=== PATIENT | female | born 1970 | race Hispanic/Latino ===

== ENCOUNTER 2017-08-06 09:55 | Emergency (ER) | payer MEDICAID ==
[2017-08-06 10:01] VITALS: BMI 24.2
[2017-08-06] MEDS ORDERED: DiphenhydrAMINE 50 mg/ml Inj IVP STA (10:07)
--- NOTE | 2017-08-06 10:11 | ED PDOC ---
Arrival/HPI - General Chief Complaint: Substance Abuse Time Seen by Provider: 08/06/17 10:04 Historian: Patient - History of Present Illness Narrative History of Present Illness (Text): 42yoF, with agitation, stated opioid withdrawal and took several percocet's and someone else's suboxone without clarification of quantity or dose but otherwise denies thoughts to harm self or others or hallucinations or any head injury/ trauma/sob/chest pain/abdomen pain/numbness/tingling/loss of limb function/pain with urination. patient became agitated and per nursing requires restraints and sedation for her safety. 08/06/17 10:08 08/06/17 10:11 Time/Duration: Prior to Arrival Symptom Onset: Sudden Quality: Other (no pain) Activities at Onset: Rest Context: Sitting Past Medical History - Provider Review Nursing Documentation Reviewed: Yes - Travel History Have you recently traveled outside [place] w/in the past 3 mons?: No - Infectious Disease Hx of Infectious Diseases: None - Psychiatric Hx Substance Use: Yes Family/Social History - Physician Review Nursing Documentation Reviewed: Yes Family/Social History: No Known Family HX Smoking Status: Unknown If Ever Smoked Hx Alcohol Use: No Hx Substance Use: Yes Allergies/Home Meds Allergies/Adverse Reactions: Allergies Unobtainable Allergy (Verified 08/06/17 10:04) Home Medications: Home Meds Medication Instructions Recorded Confirmed Unobtainable 08/06/17 08/06/17 Review of Systems - Review of Systems Constitutional: Normal Eyes: Normal ENT: Normal Respiratory: Normal Cardiovascular: Normal Gastrointestinal: Normal Genitourinary Female: Normal Musculoskeletal: Normal Skin: Normal Neurological: Normal Endocrine: Normal Hemo/Lymphatic: Normal Psychiatric: Anxiety, Other (agitation) Physical Exam Vital Signs Reviewed: Yes Vital Signs Temp Pulse Resp BP Pulse Ox 08/06/17 16:25 98 F 89 18 110/82 99 08/06/17 12:04 98.5 F 90 18 152/91 H 96 Appearance: Positive for: Other (agitated) Pain Distress: None Mental Status: Positive for: Alert and Oriented X 3 - Systems Exam Head: Present: Atraumatic, Normocephalic Pupils: Present: PERRL Extroacular Muscles: Present: EOMI Conjunctiva: Present: Normal Ears: Present: Normal Mouth: Present: Moist Mucous Membranes Pharnyx: Present: Normal Nose (External): Present: Atraumatic Nose (Internal): Present: Normal Inspection Neck: Present: Normal Range of Motion Respiratory/Chest: Present: Clear to Auscultation, Good Air Exchange Cardiovascular: Present: Regular Rate and Rhythm Abdomen: No: Tenderness, Distention, Normal Bowel Sounds, Peritoneal Signs, Rebound, Guarding, McBurney's Point Tender, Rovsing's Sign Present, Hernias, Feeding Tubes, Ostomy Tubes, Mass/Organomegaly, Scars, Other Back: Present: Normal Inspection Upper Extremity: Present: Normal Inspection Lower Extremity: Present: Normal Inspection Neurological: Present: GCS=15, CN II-XII Intact, Speech Normal, Motor Func Grossly Intact Skin: Present: Warm, Normal Color Psychiatric: Present: Alert, Oriented x 3, Agitated. No: Normal Insight, Normal Concentration, Normal Affect, Normal Mood, Anxious, Depressed Mood, Suicidal Ideation, Homicidal Ideation, Delusional, Hallucinations, Intoxicated, Lethargic, Other Medical Decision Making ED Course and Treatment: 42yoF, with agitation, stated opioid withdrawal and took several percocet's and someone else's suboxone without clarification of quantity or dose but otherwise denies thoughts to harm self or others or hallucinations or any head injury/ trauma/sob/chest pain/abdomen pain/numbness/tingling/loss of limb function/pain with urination. patient became agitated and per nursing requires restraints and sedation for her safety. benadryl haldol ativan and still agitated geodon labs wbc 10 hb 13 plts 198 chem wnl aspirin/tylenol/etoh negative 08/06/17 11:58 1;1 observer for saftey Reassessment Condition: Re-examined, Unchanged - Lab Interpretations Lab Results: 08/06/17 10:21 08/06/17 10:21 Lab Results 08/06/17 12:30: Urine Opiates Screen Positive H, Urine Methadone Screen Positive H, Ur Barbiturates Screen Negative, Ur Phencyclidine Scrn Negative, Ur Amphetamines Screen Negative, U Benzodiazepines Scrn Negative, U Oth Cocaine Metabols Negative, U Cannabinoids Screen Negative 08/06/17 12:30: Urine Color Yellow, Urine Appearance Clear, Urine pH 7.0, Ur Specific [place] 1.010, Urine Protein Negative, Urine Glucose (UA) Negative, Urine Ketones Negative, Urine Blood Trace-intact H, Urine Nitrate Negative, Urine Bilirubin Negative, Urine Urobilinogen 0.2, Ur Leukocyte Esterase Negative , Urine RBC 1 - 3, Urine WBC 0 - 2, Ur Epithelial Cells 4 - 5, Urine Bacteria Many, Urine Other Uyeast, Urine HCG, Qual Negative 08/06/17 10:21: PT 10.3, INR 0.90 L, APTT 31.5 08/06/17 10:21: Alcohol, Quantitative < 10 08/06/17 10:21: Salicylates < 1 L, Acetaminophen < 10.0 L 08/06/17 10:21: Sodium 145, Potassium 3.9, Chloride 107, Carbon Dioxide 26, Anion Gap 16, BUN 21, Creatinine 0.7, Est GFR ( Amer) > 60, Est GFR (Non- Af Amer) > 60, Random Glucose 115 H, Calcium 9.7, Magnesium 1.8, Total Bilirubin < 0.1 L, AST 24, ALT 21, Alkaline Phosphatase 86, Troponin I < 0.01, Total Protein 7.8, Albumin 4.4, Globulin 3.4, Albumin/Globulin Ratio 1.3 08/06/17 10:21: WBC 10.4, RBC 4.41, Hgb 13.6, Hct 39.3, MCV 89.1, MCH 30.8, MCHC 34.6, RDW 12.9, Plt Count 198, MPV 9.4, Gran % 76.0 H, Lymph % (Auto) 19.0 L, [place] % (Auto) 4.0, Eos % (Auto) 0.8 L, Baso % (Auto) 0.2, Gran # 7.88 H, Lymph # (Auto) 2.0, [place] # (Auto) 0.4, Eos # (Auto) 0.1, Baso # (Auto) 0.02 - RAD Interpretation Radiology Orders: 08/06/17 10:05 CHEST PORTABLE [RAD] Stat - Medication Orders Current Medication Orders: Discontinued Medications Diphenhydramine HCl (Benadryl) 50 mg IVP STAT STA Stop: 08/06/17 10:08 Last Admin: 08/06/17 10:19 Dose: 50 mg IVP Administration Document 08/06/17 10:19 OCS (Rec: 08/06/17 10:19 OCS [id number]) Charges for Administration # of IVP Administrations 1 Haloperidol Lactate (Haldol) 5 mg IM STAT STA PRN Reason: Protocol Stop: 08/06/17 10:08 Last Admin: 08/06/17 10:19 Dose: 5 mg IM Administration Charges Document 08/06/17 10:19 OCS (Rec: 08/06/17 10:19 OCS [id number]) Injection Site MAR Injection Site Left Arm Charges for Administration # of IM Administrations 1 Lorazepam (Ativan) 2 mg IVP STAT STA Stop: 08/06/17 10:06 Last Admin: 08/06/17 10:19 Dose: 2 mg IVP Administration Document 08/06/17 10:19 OCS (Rec: 08/06/17 10:19 OCS [id number]) Charges for Administration # of IVP Administrations 1 Ziprasidone (Geodon Inj) 20 mg IM STAT STA PRN Reason: Protocol Stop: 08/06/17 10:50 Last Admin: 08/06/17 11:07 Dose: 20 mg IM Administration Charges Document 08/06/17 11:07 OCS (Rec: 08/06/17 11:07 OCS [id number]) Injection Site MAR Injection Site Right Deltoid Charges for Administration # of IM Administrations 1 Disposition/Present on Arrival - Present on Arrival Any Indicators Present on Arrival: No History of DVT/PE: No History of Uncontrolled Diabetes: No Urinary Catheter: No History of Decub. Ulcer: No History Surgical Site Infection Following: None - Disposition Have Diagnosis and Disposition been Completed?: Yes Diagnosis: Opiate use, Psychiatric care Disposition: AGAINST MEDICAL ADVICE Disposition Time: 07:46 Condition: IMPROVED Discharge Instructions (ExitCare): Drug Abuse and Drug Addiction (DC) Additional Instructions: JARON COLMENARES, thank you for letting us take care of you today. Your provider was Timi Hammer DO and you were treated for Opiate Use possible withdrawal. The emergency medical care you received today was directed at your acute symptoms. If you were prescribed any medication, please fill it and take as directed. It may take several days for your symptoms to resolve. Return to the Emergency Department if your symptoms worsen, do not improve, or if you have any other problems. Please contact your doctor or call one of the physicians/clinics you have been referred to that are listed on the Patient Visit Information form that is included in your discharge packet. Bring any paperwork you were given at discharge with you along with any medications you are taking to your follow up visit. Our treatment cannot replace ongoing medical care by a primary care provider outside of the emergency department. Thank you for allowing the [facility] team to be part of your care today. If you had an X-Ray or CT scan: A Radiologist will review the ED reading if any change in treatment is needed we will contact you. If you had a blood, urine, or wound culture: It will take several days for the results, if any change in treatment is needed we will contact you. If you had an STI test: It will take 48 hours for the results. Please call after 1 week if you have not heard back. Referrals: [facility] [[facility]] - Follow up with primary Forms: [employer] (Malay), WORK NOTE
[2017-08-06] MEDS ORDERED: DiphenhydrAMINE 50 mg/ml Inj ONE (10:14)
[2017-08-06 10:38] LABS: BASO # 0.02 K/mm3 (0.0-2.0); BASO % 0.2 % (0.0-3.0); EOS # 0.1 (0.0-0.7); EOS % 0.8 % (1.5-5.0); GRAN # 7.88 (1.4-6.5); HEMOGLOBIN 13.6 g/dL (12.0-16.0); MEAN CELL VOLUME 89.1 fl (80.0-105.0); MEAN CORPUSCULAR HEMOGLOBIN 30.8 pg (25.0-35.0); MEAN CORPUSCULAR HGB CONC 34.6 g/dl (31.0-37.0); MEAN PLATELET VOLUME 9.4 fl (7.0-11.0); MONO # 0.4 (0.1-0.6); RBC 4.41 10^6/uL (3.5-6.1); RED CELL DISTRIBUTION WIDTH 12.9 % (11.5-14.5); WHITE BLOOD COUNT 10.4 10^3/ul (4.5-11.0)
[2017-08-06 10:45] LABS: ALB/GLOB RATIO 1.3 (1.1-1.8); ALBUMIN 4.4 g/dL (3.0-4.8); ALT/SGPT 21 U/L (7-56); AST/SGOT 24 U/L (14-36); BLOOD UREA NITROGEN 21 mg/dL (7-21); CALCIUM 9.7 mg/dL (8.4-10.5); GFR AFRICAN-AMERICAN > 60; GFR NON-AFRICAN AMERICAN > 60
[2017-08-06 10:46] LABS: ACETAMINOPHEN < 10.0 ug/ml (10.0-20.0); SALICYLATE < 1 mg/dL (2.0-20.0)
[2017-08-06 10:47] LABS: INR 0.9 (0.93-1.08); PARTIAL THROMBOPLASTIN TIME 31.5 Seconds (25.1-36.5); PROTHROMBIN TIME 10.3 SECONDS (9.4-12.5)
[2017-08-06 10:57] LABS: TROPONIN I < 0.01 ng/mL
[2017-08-06 12:05] VITALS: RESP 18
--- NOTE | 2017-08-06 12:41 | ED PDOC ---
Physical Exam Vital Signs Reviewed: Yes Vital Signs Temp Pulse Resp BP Pulse Ox 08/06/17 12:04 98.5 F 90 18 152/91 H 96 Temperature: Afebrile Blood Pressure: Hypertensive Pulse: Regular Respiratory Rate: Normal Appearance: Positive for: Well-Appearing, Non-Toxic, Comfortable Pain Distress: None Mental Status: Positive for: Alert and Oriented X 3 Medical Decision Making ED Course and Treatment: 08/06/17 12:40 Patient signed out to me by Dr. Lee at this time. Patient presents due to drug overdose after ingesting Percocet and Suboxone. Pending chest xray, EKG , and PES evaluation. 08/06/17 15:27 Utox positive for opiates and methadone. Patient is AAOx3. No slurred speech. No ataxia. Patient confirmed name with me and Madison MORAES. Madison MORAES knows patient well and evaluated her. She discussed case with Psychiatrist. Patient does not want to be admitted for psychiatric care. Patient will be discharged for follow up with [facility] or [facility] clinic. Patient agreed to follow up. She denies SI or HI at this time. PES/Psych recommended she be discharged AMA. Patient signed form understands risks vs benefits vs alternatives for care. 08/06/17 15:30 Leaving Against Medical Advice (AMA): The patient is choosing to leave against medical advice. I have personally explained to the patient that choosing to do so may result in permanent bodily harm or . I have discussed at great length that without further evaluation and monitoring there may be unforeseen circumstances and/or deterioration causing permanent bodily harm or as a result of their choice. The patient is alert, oriented, and shows the mental capacity to make clear decisions regarding the patients health care at this time. The patient continues to wish to leave against medical advice. In light of the patients decision to leave against medical advice, follow-up has been arranged and the patient is aware of the importance to following up as instructed. The patient has been advised that they should return to the emergency room immediately if they change their mind at any time, or if their condition begins to change or worsen in any way. - Lab Interpretations Lab Results: 08/06/17 10:21 08/06/17 10:21 Lab Results 08/06/17 12:30: Urine Opiates Screen Positive H, Urine Methadone Screen Positive H, Ur Barbiturates Screen Negative, Ur Phencyclidine Scrn Negative, Ur Amphetamines Screen Negative, U Benzodiazepines Scrn Negative, U Oth Cocaine Metabols Negative, U Cannabinoids Screen Negative 08/06/17 12:30: Urine Color Yellow, Urine Appearance Clear, Urine pH 7.0, Ur Specific [place] 1.010, Urine Protein Negative, Urine Glucose (UA) Negative, Urine Ketones Negative, Urine Blood Trace-intact H, Urine Nitrate Negative, Urine Bilirubin Negative, Urine Urobilinogen 0.2, Ur Leukocyte Esterase Negative , Urine RBC 1 - 3, Urine WBC 0 - 2, Ur Epithelial Cells 4 - 5, Urine Bacteria Many, Urine Other Uyeast, Urine HCG, Qual Negative 08/06/17 10:21: PT 10.3, INR 0.90 L, APTT 31.5 08/06/17 10:21: Alcohol, Quantitative < 10 08/06/17 10:21: Salicylates < 1 L, Acetaminophen < 10.0 L 08/06/17 10:21: Sodium 145, Potassium 3.9, Chloride 107, Carbon Dioxide 26, Anion Gap 16, BUN 21, Creatinine 0.7, Est GFR ( Amer) > 60, Est GFR (Non- Af Amer) > 60, Random Glucose 115 H, Calcium 9.7, Magnesium 1.8, Total Bilirubin < 0.1 L, AST 24, ALT 21, Alkaline Phosphatase 86, Troponin I < 0.01, Total Protein 7.8, Albumin 4.4, Globulin 3.4, Albumin/Globulin Ratio 1.3 08/06/17 10:21: WBC 10.4, RBC 4.41, Hgb 13.6, Hct 39.3, MCV 89.1, MCH 30.8, MCHC 34.6, RDW 12.9, Plt Count 198, MPV 9.4, Gran % 76.0 H, Lymph % (Auto) 19.0 L, [place] % (Auto) 4.0, Eos % (Auto) 0.8 L, Baso % (Auto) 0.2, Gran # 7.88 H, Lymph # (Auto) 2.0, [place] # (Auto) 0.4, Eos # (Auto) 0.1, Baso # (Auto) 0.02 - RAD Interpretation Radiology Orders: 08/06/17 10:05 CHEST PORTABLE [RAD] Stat - EKG Interpretation EKG Interpretation (Text): 08/06/17 14:10 EKG: Ordered, reviewed, and independently interpreted the EKG. Rate : 76 BPM Rhythm : NSR Interpretation : No ST-segment elevations or depressions, no T-wave inversions, normal intervals. Interpreted by ED Physician: Yes Type: 12 lead EKG - Medication Orders Current Medication Orders: Discontinued Medications Diphenhydramine HCl (Benadryl) 50 mg IVP STAT STA Stop: 08/06/17 10:08 Last Admin: 08/06/17 10:19 Dose: 50 mg IVP Administration Document 08/06/17 10:19 OCS (Rec: 08/06/17 10:19 OCS [id number]) Charges for Administration # of IVP Administrations 1 Haloperidol Lactate (Haldol) 5 mg IM STAT STA PRN Reason: Protocol Stop: 08/06/17 10:08 Last Admin: 08/06/17 10:19 Dose: 5 mg IM Administration Charges Document 08/06/17 10:19 OCS (Rec: 08/06/17 10:19 OCS [id number]) Injection Site MAR Injection Site Left Arm Charges for Administration # of IM Administrations 1 Lorazepam (Ativan) 2 mg IVP STAT STA Stop: 08/06/17 10:06 Last Admin: 08/06/17 10:19 Dose: 2 mg IVP Administration Document 08/06/17 10:19 OCS (Rec: 08/06/17 10:19 OCS [id number]) Charges for Administration # of IVP Administrations 1 Ziprasidone (Geodon Inj) 20 mg IM STAT STA PRN Reason: Protocol Stop: 08/06/17 10:50 Last Admin: 08/06/17 11:07 Dose: 20 mg IM Administration Charges Document 08/06/17 11:07 OCS (Rec: 08/06/17 11:07 OCS [id number]) Injection Site MAR Injection Site Right Deltoid Charges for Administration # of IM Administrations 1 - Scribe Statement The provider has reviewed the documentation as recorded by the Orinibalonzo Rendon Provider Scribe Attestation: All medical record entries made by the Scribe were at my direction and personally dictated by me. I have reviewed the chart and agree that the record accurately reflects my personal performance of the history, physical exam, medical decision making, and the department course for this patient. I have also personally directed, reviewed, and agree with the discharge instructions and disposition. Disposition/Present on Arrival - Present on Arrival Any Indicators Present on Arrival: No History of DVT/PE: No History of Uncontrolled Diabetes: No Urinary Catheter: No History of Decub. Ulcer: No History Surgical Site Infection Following: None - Disposition Have Diagnosis and Disposition been Completed?: Yes Diagnosis: Opiate use, Psychiatric care Disposition: AGAINST MEDICAL ADVICE Disposition Time: 15:17 Patient Plan: Discharge Patient Problems: Current Active Problems Problem Status Onset Opiate use Acute Psychiatric care Acute Condition: IMPROVED Discharge Instructions (ExitCare): Drug Abuse and Drug Addiction (DC) Additional Instructions: JARON COLMENARES, thank you for letting us take care of you today. Your provider was Timi Hammer DO and you were treated for Opiate Use possible withdrawal. The emergency medical care you received today was directed at your acute symptoms. If you were prescribed any medication, please fill it and take as directed. It may take several days for your symptoms to resolve. Return to the Emergency Department if your symptoms worsen, do not improve, or if you have any other problems. Please contact your doctor or call one of the physicians/clinics you have been referred to that are listed on the Patient Visit Information form that is included in your discharge packet. Bring any paperwork you were given at discharge with you along with any medications you are taking to your follow up visit. Our treatment cannot replace ongoing medical care by a primary care provider outside of the emergency department. Thank you for allowing the [facility] team to be part of your care today. If you had an X-Ray or CT scan: A Radiologist will review the ED reading if any change in treatment is needed we will contact you. If you had a blood, urine, or wound culture: It will take several days for the results, if any change in treatment is needed we will contact you. If you had an STI test: It will take 48 hours for the results. Please call after 1 week if you have not heard back. Referrals: [facility] [Outside] - Follow up with primary Forms: [employer] (Zimbabwean), WORK NOTE
[2017-08-06 12:42] LABS: URINE BILIRUBIN NEGATIVE (NEGATIVE); URINE BLOOD TRACE-INTACT (NEGATIVE); URINE GLUCOSE (UA) NEGATIVE (NEGATIVE); URINE LEUKOCYTE ESTERASE NEGATIVE Leu/uL (NEGATIVE); URINE PROTEIN NEGATIVE mg/dL (<30 mg/dL); URINE UROBILINOGEN 0.2 E.U./dL (<1 E.U./dL)
[2017-08-06 12:50] LABS: URINE APPEARANCE CLEAR (CLEAR); URINE COLOR YELLOW (YELLOW)
[2017-08-06 12:51] LABS: HCG,QUALITATIVE URINE NEGATIVE (NEGATIVE)
[2017-08-06 13:03] LABS: BENZODIAZEPINES, UR NEGATIVE (NEGATIVE)
[2017-08-06 13:06] LABS: BARBITURATES, UR NEGATIVE (NEGATIVE); OPIATES, UR POSITIVE (NEGATIVE); PHENCYCLIDINE, UR NEGATIVE (NEGATIVE)
[2017-08-06 13:16] LABS: URINE BACTERIA MANY (NEG); URINE WBC 0 - 2 /hpf (0-6)
--- NOTE | 2017-08-06 14:37 | RAD ---
HISTORY: 42yoF, agitation COMPARISON: No prior. FINDINGS: LUNGS: No active pulmonary disease. PLEURA: No significant pleural effusion identified, no pneumothorax apparent. CARDIOVASCULAR: Normal. OSSEOUS STRUCTURES: No significant abnormalities. VISUALIZED UPPER ABDOMEN: Normal. OTHER FINDINGS: None. IMPRESSION: No active disease.
[2017-08-06 17:02] VITALS: BP 110/82; PULSE 89; TEMP 98; O2SAT 99
--- NOTE | 2017-08-06 22:04 | CARD ---
APPROVED REPORT EKG Measurement Heart [id number] CT 170P75 [id number] <Conclusion> Normal sinus rhythm Possible Left atrial enlargement Borderline ECG
== END 2017-08-06 16:25 | disposition left against medical advice (07) ==
LOC: EDBD 09:55 → ED 09:55
DX: F11.90 Opioid use, unspecified, uncomplicated (principal); Z00.8 Encounter for other general examination
CPT/HCPCS: 71045; 80053; 80320; 80324; 80329; 80345; 80346; 80349; 80353; 80358; 80361; 81001; 83735; 83992; 84484; 84703; 85025; 85610; 85730; 90791; 93005; 96372; 96374; 96375; 99285; J1200; J1630; J2060; J3486